=== PATIENT | male | born 2000 | race African-American/Black ===

== ENCOUNTER 2018-07-03 21:14 | Emergency (ER) | payer OTHER ==
[2018-07-03 21:29] VITALS: BP 132/78; PULSE 74; TEMP 99.6; BMI 24.0
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
== END 2018-07-03 22:12 | disposition home or self-care (01) ==
LOC: JERFT 21:14
PROC: 0HQ1XZZ Repair Face Skin, External Approach (ICD-10-PCS; principal; 2018-07-03)
DX: S01.411A Laceration without foreign body of right cheek and temporomandibular area, initial encounter (principal); Y04.2XXA Assault by strike against or bumped into by another person, initial encounter; Y93.9 Activity, unspecified; Y92.9 Unspecified place or not applicable; F17.210 Nicotine dependence, cigarettes, uncomplicated
CPT/HCPCS: 12011; 99281-25

== ENCOUNTER 2018-07-09 09:52 | Emergency (ER) | payer OTHER ==
[2018-07-09 09:58] VITALS: BP 120/73; PULSE 60; TEMP 98.2; BMI 24.9
--- NOTE | 2018-07-09 10:21 | PDOC ---
Suture Removal/Wound Check HPI - History of Present Illness Chief Complaint: Suture/Staple Removal(Here) Stated Complaint: Suture/Staple Removal (other) Time Seen by Provider: 07/09/18 10:11 History Source: Yes: Patient Exam Limitations: Yes: No Limitations Treated at: [facility] ED - Previous ED Treatment Type of procedure performed on last visit: Yes: Laceration Repair Tetanus Immunization: Yes: Up to Date Antibiotics Prescribed: No Past History - Travel Traveled outside of the country in the last 30 days: No Close contact w/someone who was outside of country & ill: No - Past Medical History Allergies/Adverse Reactions: Allergies Allergy/AdvReac Type Severity Reaction Status Date / Time No Known Allergies Allergy Verified 07/09/18 09:55 Home Medications: Ambulatory Orders NK [No Known Home Medication] 07/03/18 COPD: No - Immunization History Immunization Up to Date: Yes - Suicide/Smoking/Psychosocial Hx Smoking Status: No Smoking History: Never smoked Number of Cigarettes Smoked Daily: 2 Hx Alcohol Use: No Drug/Substance Use Hx: Yes Suture Removal/Wound Check PE - Physical Exam Laceration/Wound Check Symptoms: reports: None Current Severity Level: None Maximum Severity Level: None Pain Localization: None *Review of Systems - Review of Systems Able to Perform ROS?: Yes Constitutional: Yes: See HPI. No: Symptoms Reported HEENTM: Yes: See HPI. No: Symptoms Reported Integumentary: Yes: Symptoms Reported, See HPI, Bruising, Other (healing rightcheekwound with sutures intact no redness/ draiange or pain ) *Physical Exam - Vital Signs Last Vital Signs Temp Pulse Resp BP Pulse Ox 98.2 F 60 18 120/73 99 07/09/18 09:55 07/09/18 09:55 07/09/18 09:55 07/09/18 09:55 07/09/18 09:55 - Physical Exam General Appearance: Yes: Nourished, Appropriately Dressed HEENT: positive: AUBREY, Normal ENT Inspection, TMs Normal, Pharynx Normal Neck: positive: Supple, Lymphadenopathy (R), Lymphadenopathy (L) Respiratory/Chest: positive: Lungs Clear, Normal Breath Sounds Gastrointestinal/Abdominal: positive: Soft Extremity: positive: Normal Inspection Integumentary: positive: Warm, Pale Neurologic: positive: orthotic/prosthetic practitioner II-XII NML intact, Fully Oriented, Alert, Normal Mood/ Affect, Normal Response, Motor Strength 5/5 Moderate Sedation - Procedure Monitoring Vital Signs: Procedure Monitoring Vital Signs Temperature 98.2 F 07/09/18 09:55 Pulse Rate 60 07/09/18 09:55 Respiratory Rate 18 07/09/18 09:55 Blood Pressure 120/73 07/09/18 09:55 O2 Sat by Pulse Oximetry (%) 99 07/09/18 09:55 Medical Decision Making - Medical Decision Making 07/09/18 10:23 6 sutures removed with no incident/ well approximated woound. *DC/Admit/Observation/Transfer Diagnosis at time of Disposition: Visit for suture removal - Discharge Dispostion Disposition: HOME Condition at time of disposition: Stable Decision to Admit order: No - Referrals - Patient Instructions Printed Discharge Instructions: DI for Suture Removal Additional Instructions: Rest, avoid strenuous activity or exercise until scabbing is completely resolved May use bacitracin ointment until scabbing is gone After may use vitamin E oil, poke hole in vitamin E capsule and use oil from the capsule on wound- may help resolve some of the discoloration of the scar Keep wound out of the sun for at least one year to avoid darkening of scar tissue - Post Discharge Activity Forms/Work/School Notes: Back to Work
== END 2018-07-09 10:34 | disposition home or self-care (01) ==
LOC: JERFT 09:52
DX: Z48.02 Encounter for removal of sutures (principal)
CPT/HCPCS: 99281-25

== ENCOUNTER 2022-08-05 09:25 | Emergency (ER) | payer SELFPAY ==
[2022-08-05 09:31] VITALS: BP 140/67; PULSE 72; RESP 18; TEMP 97.8; BMI 24.0
== END 2022-08-05 11:18 | disposition home or self-care (01) ==
LOC: JERFT 09:25
DX: H65.02 Acute serous otitis media, left ear (principal); H93.13 Tinnitus, bilateral
CPT/HCPCS: 99283-25

== ENCOUNTER 2022-08-07 03:45 | Emergency (ER) | payer SELFPAY ==
[2022-08-07 04:03] VITALS: BP 121/80; PULSE 54; RESP 18; TEMP 97.8; BMI 24.0
== END 2022-08-07 04:43 | disposition home or self-care (01) ==
LOC: JER 03:45
DX: H93.8X3 Other specified disorders of ear, bilateral (principal)
CPT/HCPCS: 99283-25

== ENCOUNTER 2022-12-21 21:00 | Emergency (ER) | payer OTHER ==
[2022-12-21 21:26] VITALS: BMI 23.3
[2022-12-22] MEDS ORDERED: ACETAMINOPHEN 325 MG TABLET (FP) PO ONE (00:07)
[2022-12-22] MEDS ORDERED: ACETAMINOPHEN 325 MG TABLET (FP) ONE (00:18)
[2022-12-22 01:06] VITALS: BP 123/66; PULSE 58; RESP 16; TEMP 97.8
== END 2022-12-22 01:23 | disposition home or self-care (01) ==
LOC: JER 21:00
DX: R10.9 Unspecified abdominal pain (principal); R19.7 Diarrhea, unspecified; J10.2 Influenza due to other identified influenza virus with gastrointestinal manifestations; R11.0 Nausea; Z20.822 Contact with and (suspected) exposure to COVID-19
CPT/HCPCS: 0241U-QW; 99283-25

== ENCOUNTER 2023-07-18 18:25 | Emergency (ER) | payer OTHER ==
[2023-07-18 18:42] VITALS: BP 121/70; PULSE 74; RESP 18; TEMP 98.1; BMI 22.3
== END 2023-07-19 00:54 | disposition home or self-care (01) ==
LOC: JER 18:25 → JERFT 18:25
DX: K59.00 Constipation, unspecified (principal); F12.23 Cannabis dependence with withdrawal
CPT/HCPCS: 74019-TC-FY; 74176-TC; 99284-25